=== PATIENT | male | born 2000 | race Caucasian/White ===

== ENCOUNTER 2018-04-12 21:21 | Emergency (ER) | payer MEDICAID ==
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
[2018-04-12] MEDS ORDERED: Ibuprofen 600 MG Tab PO ONE (23:16)
== END 2018-04-12 23:44 | disposition home or self-care (01) ==
LOC: DL.ED 21:21
DX: S46.912A Strain of unspecified muscle, fascia and tendon at shoulder and upper arm level, left arm, initial encounter (principal); Z79.899 Other long term (current) drug therapy; X50.0XXA Overexertion from strenuous movement or load, initial encounter
CPT/HCPCS: 71045; 99283; A9270-GY